=== PATIENT | female | born 1995 | race African-American/Black ===

== ENCOUNTER 2016-06-15 14:54 | Emergency (ER) | payer OTHER ==
[2015-05-29 18:05] VITALS: BP 124/81
== END 2016-06-15 15:10 | disposition left against medical advice (07) ==
LOC: ER 14:54
DX: R51 Headache (principal); Z53.21 Procedure and treatment not carried out due to patient leaving prior to being seen by health care provider

== ENCOUNTER 2021-05-06 08:55 | Emergency (ER) | payer MEDICAID, OTHER ==
[~2021-05-06] VITALS: Ht 157.5 cm; Wt 56.3 kg
[2021-05-06] MEDS ORDERED: IPRATRPIUM/ALBUTEROL 0.5/2.5MG 3 ML NEBU. NEB ONE (09:15)
--- NOTE | 2021-05-06 09:29 | PHYS DOC ---
Past Medical History Past Medical History: Seizure Past Surgical History: No Surgical History Smoking Status: Current Every Day Smoker Additional Information: 0.25 PPD Alcohol Use: Occasionally Drug Use: Marijuana General Adult EDM: Chief Complaint: FLU SYMPTOM HPI: HPI: Patient is a 26 year old female who presents with headache, body aches, nonproductive cough, nausea and vomiting. Patient reports her symptoms began 4 days ago. She states that because of her cough, she has 8/10 pain in her "ribs" that is nonradiating. Patient reports she feels nauseated and has had a couple episodes of unprovoked emesis. She also has had episodes of posttussive emesis. Patient has not taken her temperature at home, but reports associated chills. Patient denies sick contacts. She had 2 doses of the [place] vaccine against COVID-19, but denies having had a flu shot yet this year. Patient denies fever, chest pain, palpitations, abdominal pain, diarrhea and constipation. Review of Systems: Review of Systems: Constitutional: See HPI Eyes: Denies change in visual acuity or visual field deficit. HENT: Denies nasal congestion or sore throat. Respiratory: See HPI Cardiovascular: See HPI GI: See HPI : Denies dysuria or hematuria. Musculoskeletal: Denies back pain or joint pain. Integument: Denies rash or other skin lesions. Heart Score: C/O Chest Pain: N/A Current Medications: Current Medications Medications (Trade) Dose Ordered Sig/Kim Start Time Stop Time Status Last Admin Dose Admin Albuterol/ Ipratropium (Duoneb) 3 ml 1X ONCE 05/06/21 09:15 05/06/21 09:16 DC Allergies: Allergies: Allergies Coded Allergies Type Severity Reaction Last Updated Verified Sulfa (Sulfonamide Antibiotics) Allergy Intermediate Itching 09/17/14 Yes tramadol Allergy Mild Nausea 09/17/14 No Physical Exam: PE: Constitutional: Well developed, well nourished, no acute distress, patient appe ars fatigued. HENT: Normocephalic, atraumatic, bilateral external ears without deformity or discharge, oropharynx moist, no oral exudates, nose without deformity or discharge, bilateral turbinates nonerythematous. Eyes: PERRLA, EOMI, conjunctiva normal, no discharge. Cardiovascular: Heart rate regular rhythm, no murmur. Lungs & Thorax: Wheezing heard throughout lung harris, especially in right upper lobe. Abdomen: Bowel sounds normal, soft, no tenderness, no masses, no pulsatile masses. Skin: Warm, dry, no erythema, no rash. Current Patient Data: Labs: Laboratory Tests Test 05/06/21 09:07 05/06/21 09:15 Bedside Urine HCG, Qualitative Hcg negative (Negative) Influenza Type A Antigen Negative (NEGATIVE) Influenza Type B Antigen Negative (NEGATIVE) SARS-CoV-2 Antigen (Rapid) Negative (NEGATIVE) Vital Signs: Vital Signs Date Time Temp Pulse Resp B/P (MAP) Pulse Ox O2 Delivery O2 Flow Rate FiO2 05/06/21 09:01 98.0 84 16 121/77 (92) 100 Room Air 98.0 Course & Med Decision Making: Course & Med Decision Making Pertinent Labs and Imaging studies reviewed. (See chart for details) Patient is an otherwise healthy 26-year-old female who smokes approximately 4 cigarettes/day presenting with upper respiratory symptoms. Wheezing was appreciated on exam. Flu A&B swabs as well as Covid swab will be obtained. Patient will be provided with breathing treatment and reevaluated. Rapid swabs for influenza and Covid are negative. Lung sounds improved on reevaluation. Patient is instructed to quarantine until PCR Covid swab test result becomes available. She was counseled on supportive treatment measures including bedside humidifier at night, Mucinex for decongestant, albuterol for wheezing and Tessalon Perles for cough. Patient understands and is agreeable to discharge plan. Dragon Disclaimer: Dragon Disclaimer: This electronic medical record was generated, in whole or in part, using a voice recognition dictation system. Departure Departure Impression: Primary Impression: Upper respiratory infection Qualified Codes: J06.9 - Acute upper respiratory infection, unspecified Disposition: HOME / SELF CARE / HOMELESS Condition: STABLE Referrals: MUKUND SHORT (PCP) Patient Instructions: Upper Respiratory Infection, Adult, [id number] Additional Instructions: Follow the following supportive treatment measures: - Cool mist humidifier with plain water at bedside while you sleep - Albuterol inhaler for wheezing or shortness of breath - Mucinex (guaifenesin) per box instructions - Tessalon perles (benzonatate) for cough, especially at night before bed You have been tested for COVID-19. It is an infection caused by a new type of coronavirus. COVID-19 will cause cold-like or mild flu symptoms in most. It can cause more severe symptoms like problems breathing in some. There is no hugh atment for COVID-19. The body will clear the infection over time. Self-care will help to ease discomfort. Steps to Take: - Rest as needed. - Choose healthy foods including fruits and vegetables. Drink water throughout the day. - Get plenty of sleep each night. - If you smoke, try to quit. It may ease breathing. - Avoid alcohol. - Keep Others Healthy - The virus can spread to others. Droplets are released every time you sneeze or cough. The droplets can get into the mouth, nose, or eyes of people near you and lead to infection. To lower the chances of spreading COVID-19 to others: Stay at home until your doctor has said it is safe to leave. If you tested positive this will mean staying isolated until both of the following are true: - At least 7 days have passed since the start of illness. - You are free of fever for at least 72 hours without the use of medicine. During this time: - Avoid public areas, events, or transportation. Do not return to work or school until your doctor has said it is safe to do so. - Call ahead if you need to go to a medical center. Let them know you may have COVID-19. It will help them guide you where to go. They may also ask you to wear a facemask when you come to the office. - If you call for emergency medical services, let them know you may have COVID- 19. While at home: - Try to avoid close contact with others. Stay about 6 feet away. - If possible, spend most of your time in a separate room from others. - Use a face mask if you will be in close contact with others such as sharing a room or vehicle. - Have someone wipe down common surfaces in the home. Use household legal officer every day on areas like doorknobs, counters, or sinks. - Cough or sneeze into a tissue. Throw the tissue away right after use. If a tissue is not available, cough or sneeze into your elbow. - Wash your hands often. Wash them after sneezing or coughing. Use soap and w ater and wash or at least 20 seconds. Alcohol based hand cleaner assistant can be used if soap and water is not available. - Do not prepare food for others. Avoid sharing personal items like forks, spoons, or toothbrushes. - Avoid close contact with pets while you are sick. There is no evidence of the virus passing to pets. This is a safety step until more is known about this virus. - Isolation can be frustrating. Social interaction can help. Keep in touch with friends and family through phone and tech options. You can still interact with others in your home, just keep a safe distance of about 6 feet. Follow-up: - Your doctors office will check in with you to see if there are any changes in your health. - You may be asked to keep track of symptoms to share with them. They will also let you know when you are clear to be in public again. Contact your doctor if your recovery is not going as you expect. Get emergency care if you have problems such as: - Trouble breathing with oxygen saturation <90% - Nonstop chest pain or pressure - Changes in awareness, confusion, or problems waking - Lips or face have bluish color - Worsening of symptoms If you think you have an emergency, call for emergency medical services right away. As taken from [facility] Benzonatate (BENZONATATE) 100 Mg Capsule 1-2 CAP PO HS, #30 CAP Prov: [place] SAMS 05/06/21 Albuterol Sulfate (PROAIR HFA INHALER) 8.5 Gm Hfa.aer.ad 2 PUFF IH PRN Q4-6HRS PRN for wheezing for 21 Days, #1 INHALER 0 Refills Prov: [place] SAMS 05/06/21 [place] SAMS May 06, 2021 09:29
[2021-05-06] MEDS ORDERED: IBUPROFEN 400 MG TABLET. PO ONE (09:30)
[2021-05-06] MEDS ORDERED: ONDANSETRON ODT 4 MG TAB.RAPDIS. PO ONE (09:45)
[2021-05-06 09:58] LABS: INFLUENZA A PATIENT NEGATIVE (NEGATIVE); INFLUENZA B PATIENT NEGATIVE (NEGATIVE)
[2021-05-06 10:37] VITALS: BP 133/83
[2021-05-06] MEDS ORDERED: BENZ-8 PO (10:52)
[2021-05-06] MEDS ORDERED: ALBU2.5V8 IH (10:52)
--- NOTE | 2021-05-06 17:08 | NUR ---
IP: Informed pt of negative covid test. pt verbalized understanding.
== END 2021-05-06 11:00 | disposition home or self-care (01) ==
LOC: ER 08:55
DX: J06.9 Acute upper respiratory infection, unspecified (principal); Z20.822 Contact with and (suspected) exposure to COVID-19; Z88.2 Allergy status to sulfonamides; Z88.6 Allergy status to analgesic agent
CPT/HCPCS: 81025; 87426; 87804; 94640; 99285; U0003; U0005